=== PATIENT | female | born 2000 | race Two or more races ===

== ENCOUNTER 2021-07-31 16:14 | Inpatient (IN) | payer MEDICAID, OTHER ==
[~2021-07-31] VITALS: Ht 154.9 cm; Wt 60.0 kg
[2021-07-31] MEDS ORDERED: SODIUM CHLORIDE 0.9% 1,000 ML IV ONE ×2 (18:45)
[2021-07-31] MEDS ORDERED: PIPERACILLIN-TAZOB 3.375GM 100 ML IV ONE (18:45)
[2021-07-31] MEDS ORDERED: ONDANSETRON HCL 4 MG/2 ML VIAL IV ONE (18:45)
[2021-07-31] MEDS ORDERED: MORPHINE SULFATE 4 MG/ML SYR/VIAL IV ONE (18:45)
[2021-07-31 19:22] LABS: Basophils # (auto) 0 10 ^3/uL (0-0.2); Basophils % (auto) 0.2 % (0.0-2.0); Eosinophils # (auto) 0.1 10 ^3/uL (0-0.8); Hematocrit 40.6 % (36.0-46.0); Hemoglobin 13.2 g/dL (12.2-16.2); Lymphocytes # (auto) 2.4 10 ^3/uL (0.4-5.4); Lymphocytes % (auto) 22.6 % (10.0-50.0); Mean Corpuscular Hgb Conc. 32.5 g/dL (32.0-36.0); Mean Corpuscular Volume 89.3 fL (80.0-100.0); Monocytes # (auto) 0.7 10 ^3/uL (0-1.3); Monocytes % (auto) 6.5 % (0.0-12.0); Neutrophils # (auto) 7.4 10 ^3/uL (1.6-8.6); Neutrophils % (auto) 69.7 % (37.0-80.0); Nucleated Red Blood Cells % 0.1 %; Red Blood Cells 4.54 10^6/uL (4.0-5.20); Red Cell Distribution Width 14.4 % (11.8-14.3); White Blood Cell 10.7 10^3/uL (4.4-10.8)
[2021-07-31 19:38] LABS: INR 1.04 (0.9-1.15); Partial Thromboplastin Time 30.9 sec (23.6-33.0)
[2021-07-31 19:39] LABS: Albumin 3.8 g/dL (3.4-5.0); BUN/Creatinine Ratio 15.7; Calcium 9.4 mg/dL (8.5-10.1); Potassium 3.4 mmol/L (3.5-5.1)
[2021-07-31 19:42] LABS: Bilirubin, Total 0.3 mg/dL (0.2-1.0); Total Protein 8.4 g/dL (6.4-8.2)
[2021-07-31] MEDS ORDERED: PROPOFOL 10 MG/ML 20 ML IV ONE (21:21)
[2021-07-31] MEDS ORDERED: HYDROmorphone HCL 2 MG/ML VL ONE (21:21)
[2021-07-31] MEDS ORDERED: ROCURONIUM 10MG/ML 10ML VIAL IV ONE (21:23)
[2021-07-31] MEDS ORDERED: BUPIVACAINE 0.25% INJ 50ML VIAL ONE (21:24)
[2021-07-31] MEDS ORDERED: MORPHINE SULFATE INJECTION 2 MG/ML SYRG IV PRN (21:30)
[2021-07-31] MEDS ORDERED: ONDANSETRON HCL 4 MG/2 ML VIAL IV PRN ×2 (21:30→23:15)
[2021-07-31] MEDS: metroNIDAZOLE 500MG/100ML 100 ML IV SCH (22:00)
[2021-07-31] MEDS ORDERED: POTASSIUM CHL 20MEQ/50ML 50 ML IV ONE (22:00)
[2021-07-31] MEDS ORDERED: SUCCINYLCHOLINE CHLORIDE 20 MG/ML 10ML VIAL IV ONE (22:04)
[2021-07-31] MEDS ORDERED: ONDANSETRON HCL 4 MG/2 ML VIAL ONE (22:27)
[2021-07-31] MEDS ORDERED: DexAMETHasone SOD PHOS 10MG/1ML VIAL INJ ONE (22:27)
[2021-07-31] MEDS ORDERED: NEOSTIGMINE 1 MG/ML INJ (10mg/10ML VIAL) ONE (22:36)
[2021-07-31 22:57] LABS: Urine Bacteria NONE SEEN /hpf (None Seen); Urine Blood 2+ /uL (Negative); Urine Specific Gravity 1.025 (1.001-1.035); Urine WBC 3 /hpf (0 - 5)
[2021-07-31] MEDS ORDERED: METOCLOPRAMIDE HCL 5MG/ml INJ 2ml VIAL IV PRN (23:15)
[2021-07-31] MEDS ORDERED: fentaNYL CITRATE 100 MCG/2 ML VL IV PRN (23:15)
[2021-07-31] MEDS ORDERED: HYDROmorphone HCL 2 MG/ML VL IV PRN ×2 (23:15)
[2021-07-31 23:59] VITALS: BP 120/74
[2021-08-01] MEDS: D5W/SOD CHLO 0.9% 1,000 ML IV SCH ×2 (00:46→10:35)
[2021-08-01] MEDS: metroNIDAZOLE 500MG/100ML 100 ML IV SCH ×3 (06:51→22:25)
[2021-08-01 08:20] VITALS: BP 117/72
[2021-08-01] MEDS: cefTRIAXone 1GM/50ML D5W 50 ML IV SCH (08:21)
[2021-08-01 08:22] LABS: Basophils # (auto) 0 10 ^3/uL (0-0.2); Basophils % (auto) 0.1 % (0.0-2.0); Eosinophils # (auto) 0 10 ^3/uL (0-0.8); Hematocrit 33.4 % (36.0-46.0); Hemoglobin 11.1 g/dL (12.2-16.2); Lymphocytes # (auto) 0.6 10 ^3/uL (0.4-5.4); Mean Corpuscular Hemoglobin 29.6 pg (28.0-32.0); Mean Corpuscular Hgb Conc. 33.4 g/dL (32.0-36.0); Mean Corpuscular Volume 88.6 fL (80.0-100.0); Monocytes # (auto) 0.1 10 ^3/uL (0-1.3); Monocytes % (auto) 1.5 % (0.0-12.0); Neutrophils # (auto) 8.7 10 ^3/uL (1.6-8.6); Neutrophils % (auto) 92.4 % (37.0-80.0); Nucleated Red Blood Cells % 0.2 %; Red Blood Cells 3.77 10^6/uL (4.0-5.20); Red Cell Distribution Width 14.1 % (11.8-14.3); White Blood Cell 9.4 10^3/uL (4.4-10.8)
[2021-08-01 08:32] LABS: Potassium 4.2 mmol/L (3.5-5.1)
[2021-08-01 08:54] LABS: Albumin 3.2 g/dL (3.4-5.0); BUN/Creatinine Ratio 17.3; Bilirubin, Total 0.2 mg/dL (0.2-1.0); Calcium 8.6 mg/dL (8.5-10.1); Total Protein 7.1 g/dL (6.4-8.2)
[2021-08-01 09:00] VITALS: BP 117/72
[2021-08-01] MEDS ORDERED: traMADol HCL 50 MG TAB PO PRN (10:15)
[2021-08-01] MEDS ORDERED: THROAT LOZENGES(CEPASTAT) MT PRN (10:15)
[2021-08-01] MEDS: PANTOPRAZOLE 40 MG/10 ML VIAL INJ IV SCH (10:27)
[2021-08-01 13:00] VITALS: BP 104/59
[2021-08-01 17:00] VITALS: BP 100/58
[2021-08-01 22:00] VITALS: BP 100/60
[2021-08-02] MEDS: D5W/SOD CHLO 0.9% 1,000 ML IV SCH (03:00)
[2021-08-02 05:00] VITALS: BP 107/75
[2021-08-02] MEDS: metroNIDAZOLE 500MG/100ML 100 ML IV SCH (06:09)
[2021-08-02 08:20] VITALS: BP 102/75
[2021-08-02] MEDS: cefTRIAXone 1GM/50ML D5W 50 ML IV SCH (08:20)
[2021-08-02 08:42] VITALS: BP 106/64
[2021-08-02] MEDS ORDERED: IBUP600T28 PO (10:20)
[2021-08-02] MEDS ORDERED: CEPH-509 PO (10:20)
[2021-08-02] MEDS: PANTOPRAZOLE 40 MG/10 ML VIAL INJ IV SCH (10:25)
[2021-08-02 11:12] VITALS: BP 106/64
[2021-08-02 11:55] VITALS: BP 105/67
== END 2021-08-02 13:25 | disposition home or self-care (01) | DRG 233 ==
LOC: ER 16:14 → OVERFLOW 21:23 → CENTRAL 23:59
PROVIDERS: ADMIT Nurse Practitioner; ATTEND Internal Medicine
PROC: 0W9J4ZZ Drainage of Pelvic Cavity, Percutaneous Endoscopic Approach (ICD-10-PCS; 2021-07-31)
PROC: 0DTJ4ZZ Resection of Appendix, Percutaneous Endoscopic Approach (ICD-10-PCS; principal; 2021-07-31 22:00)
DX: K35.33 Acute appendicitis with perforation, localized peritonitis, and gangrene, with abscess (principal); N73.9 Female pelvic inflammatory disease, unspecified; Z20.822 Contact with and (suspected) exposure to COVID-19
CPT/HCPCS: 36415; 74176; 80053; 81001; 81025; 83605; 84702; 85025; 85610; 85730; 86850; 86900; 86901; 87040; 87426; 96365; 96366; C9113; G0378; J0330; J0696; J1100; J2405; J2543; J2704; J3490; J7042